=== PATIENT | male | born 1955 | race Caucasian/White ===

== ENCOUNTER → 2017-07-18 | Outpatient (CLI) | payer OTHER ==
[~2017-07-18] MED LIST: ALTOPREV40 MG PO; ASPIRIN EC81 M1 PO; BRILINTA90 MG PO; COREG3.125 MG PO; HYDROCODON-ACE1 EAC5 PO; LOSARTAN POTASS50 MG PO; NEURONTIN300 MG PO; PROTONIX PO; RELAFEN500 MG PO; SYNTHROID0.1 MG PO; TRICOR145 MG PO; ZANAFLEX6 MG PO
--- NOTE | ~2017-07-18 | MR104 ---
[facility] A Service of [facility] RADIOLOGY TEXT RESULTS PATIENT: HARLEY MUÑOZ LOCATION: [facility] : 55 UNIT #: [id number] AGE: [address]: Case Borjas MD SEX: M ORDER DR: [id number] [facility] [address] [place], [place] [address] [id number] O MR#: [id number] Acc #: [id number] NAME: HARLEY MUÑOZ : 1955 SEX: M STUDY DATE/TIME: 07/18/2017 17:57 UNIT: [facility] ROOM: STUDY DESCRIPTION: MR Knee Wo Contrast Rt Attending Physician: Case Borjas M.D. Referring Physician: Case Borjas M.D. Ordering Physician: Case Borjas M.D. Primary Care Physician: Louie Mohr M.D. MRI CENTER REPORT This report is preliminary unless electronic signature is present. EXAM MRI of the right knee HISTORY 61-year-old male complains of chronic knee pain. States rest wrestling injury 1972. Pain with pivoting. No recent injury. COMPARISON MRI of the right knee 09/27/2014. Right knee films 05/15/2017. TECHNIQUE Multiplanar multiecho imaging was performed of the right knee utilizing a high-field magnet and dedicated protocol. FINDINGS Susceptibility artifact is seen in the anterior medial aspect of the knee, most likely related to an apparent metal artifact or foreign body within Hoffa's fat pad, as noted on the patient's conventional radiographs. This was present on the prior study 2013. This produces moderate amount of susceptibility artifact but does not significantly limit the study. There is mild fragmentation of the tibial tubercle compatible with old Karen-Schlatter's disease. No active inflammation. Joint fluid within normal limits. Squaring of the tibial margins and spurring of the tibial spines compatible with early degenerative change. Small amount of enthesopathic cystic change noted along the tibial eminence. Complex tear of the medial meniscus with diffuse myxoid degeneration of the mid-body segment and posterior horn of the meniscus. There is a predominately longitudinal oblique tear extending from the mid-body segment into the posterior horn, though there may be a very small radial component in the anterior body segment. There is mild medial extrusion of the meniscus with the meniscus extending slightly into the medial meniscal STS. [facility] A Service of [facility] RADIOLOGY TEXT RESULTS PATIENT: HARLEY MUÑOZ LOCATION: [facility] : 55 UNIT #: [id number] AGE: [address]: Case Borjas MD SEX: M ORDER DR: tima stanley. There is a near full-thickness radial tear at the root attachment posterior horn of the medial meniscus measuring up to 6 mm in width. This complex tear is estimated close to 4 cm in length. Medial compartment articular cartilage appears intact. In the lateral compartment, the meniscus demonstrates myxoid degeneration anterior horn of the meniscus but no definitive tear. Lateral compartment articular cartilage appears intact. In the patellofemoral compartment, patellar and trochlear cartilage unremarkable. There is mild lateral subluxation of the patella with medial opening of patella which supports a patellofemoral tracking abnormality. There is somewhat shallow trochlear groove. Diffuse thickening and increased signal within the ACL compatible with mucoid degeneration. The posterior cruciate ligament appears intact. Medial collateral ligament and lateral collateral ligament complex appears intact. The extensor mechanism unremarkable, except for the previously mentioned changes from previous Thaxton-Schlatter's disease. IMPRESSION 1. Extensive complex tear medial meniscus with components of both longitudinal oblique tear and radial tears with a near full-thickness radial tear near the root attachment of the posterior horn medial meniscus. This is not significantly progressed from patient's 2014 study. 2. Mild lateral subluxation and slight lateral patellar tilt may reflect patellofemoral tracking abnormality. 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 3. Susceptibility artifact within the knee, felt to be related to metallic wire within Hoffa's fat pad. This is unchanged from the 2014 study. 4. Myxoid degeneration anterior horn lateral meniscus and mucoid degeneration of the ACL. 5. Old Karen-Schlatter's disease but no active inflammation. Dictated by.Deann Franklin M.D. THIS IS AN ELECTRONICALLY VERIFIED REPORT J. Trenton Franklin, M.D. at 07/20/2017 2:34 PM ALISHA/amor TD: 07/19/2017 15:47 JOB #: [id number] MRI CENTER REPORT Page 1 of 1 COPY
== END | disposition home or self-care (01) ==
LOC: CMRI 14:38
DX: M25.561 Pain in right knee (principal); M17.11 Unilateral primary osteoarthritis, right knee; S83.241A Other tear of medial meniscus, current injury, right knee, initial encounter; S83.001A Unspecified subluxation of right patella, initial encounter
CPT/HCPCS: 73721